=== PATIENT | female | born 1995 | race American Indian/Alaskan Native ===

== ENCOUNTER 2019-06-06 20:04 | Emergency (ER) | payer SELFPAY ==
[2019-06-06 22:05] VITALS: BP 128/76
--- NOTE | 2019-06-06 22:07 | Event Note ---
ED Screening Note Date of service: 06/06/19 Time: 22:03 ED Screening Note: This is a 24 y.o. F. that presents to the ER with low back for 2 months. Reports pain as stabbing pain that is intermittent and radiating down RLE. States she went to the gym today and worsening pain than usual. This initial assessment/diagnostic orders/clinical plan/treatment(s) is/are subject to change based on patients health status, clinical progression and re- assessment by fellow clinical providers in the ED. Further treatment and workup at subsequent clinical providers discretion. Patient/guardian urged not to elope from the ED as their condition may be serious if not clinically assessed and managed. Initial orders include: XR L-spine
--- NOTE | 2019-06-06 22:42 | XRay Report ---
LUMBAR SPINE 3 VIEWS. INDICATION / CLINICAL INFORMATION: low back pain COMPARISON: None available. FINDINGS: BONES / JOINT(S): No acute fracture or subluxation. No significant arthritis. SOFT TISSUES: No significant abnormality. ADDITIONAL FINDINGS: None. Signer Name: Elio Summers MD Signed: 06/06/2019 10:38 PM Workstation Name: [id number]
[2019-06-06] MEDS ORDERED: dexAMETHasone 20 MG/5 ML VIAL IM ONE (23:34)
[2019-06-06] MEDS ORDERED: CYCLOBENZAPRINE 10 MG TAB PO ONE (23:34)
--- NOTE | 2019-06-06 23:40 | Emergency Department Report ---
ED Back Pain/Injury HPI - General Chief Complaint: Back Pain/Injury Stated Complaint: RT LOWER HIP/BACK Time Seen by Provider: 06/06/19 22:03 Source: patient Limitations: No Limitations - History of Present Illness Initial Comments: Patient is a 24-year-old female who presents to the emergency room with complaints of right lower back pain radiating to the right hip that began 2 months ago but has progressively becoming more uncomfortable. Patient denies any fall or injury. 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 She denies any numbness, weakness, bowel or bladder incontinence, nausea, vomiting, fever. She denies any past medical history or allergies to medications. Patient states that she is currently on her menstrual cycle. - Related Data Previous Rx's Medication Instructions Recorded Last Taken Type Cyclobenzaprine [Flexeril] 10 mg PO QHS PRN #10 tablet 06/06/19 Unknown Rx Naproxen [EC-Naproxen] 500 mg PO BID PRN #14 tablet. 06/06/19 Unknown Rx Allergies Allergy/AdvReac Type Severity Reaction Status Date / Time No Known Allergies Allergy Verified 06/06/19 20:10 ED Review of Systems ROS: Stated complaint: RT LOWER HIP/BACK Other details as noted in HPI Comment: All other systems reviewed and negative ED Past Medical Hx - Social History Smoking Status: Never Smoker Substance Use Type: None - Medications Home Medications: Home Medications Medication Instructions Recorded Confirmed Last Taken Type Cyclobenzaprine [Flexeril] 10 mg PO QHS PRN #10 tablet 06/06/19 Unknown Rx Naproxen [EC-Naproxen] 500 mg PO BID PRN #14 tablet. 06/06/19 Unknown Rx ED Physical Exam - General Limitations: No Limitations General appearance: alert, in no apparent distress - Head Head exam: Present: atraumatic, normocephalic - Eye Eye exam: Present: normal appearance - ENT ENT exam: Present: mucous membranes moist - Respiratory Respiratory exam: Present: normal lung sounds bilaterally. Absent: respiratory distress, wheezes, rales, rhonchi, stridor, chest wall tenderness, accessory muscle use, decreased breath sounds, prolonged expiratory - Cardiovascular Cardiovascular Exam: Present: regular rate, normal rhythm, normal heart sounds. Absent: systolic murmur, diastolic murmur, rubs, gallop - Extremities Exam Extremities exam: Present: other (TTP over the right gluteus, no deformity, pt has pain in the back upon straight leg raise of the right leg, neurovascularly intact throughout) - Back Exam Back exam: Present: normal inspection, full ROM, paraspinal tenderness (right lumbar paraspinal muscular TTP, no midline C-spine, T-spine, or L-spine tenderness, no step offs, no deformity). Absent: vertebral tenderness - Neurological Exam Neurological exam: Present: alert, oriented X3 - Psychiatric Psychiatric exam: Present: normal affect, normal mood - Skin Skin exam: Present: warm, dry, intact ED Course Vital Signs 06/06/19 22:03 Temperature 98.7 F Pulse Rate 87 Respiratory 18 Rate Blood Pressure 128/76 O2 Sat by Pulse 99 Oximetry ED Medical Decision Making - Radiology Data Radiology results: report reviewed LUMBAR SPINE 3 VIEWS. INDICATION / CLINICAL INFORMATION: low back pain COMPARISON: None available. FINDINGS: BONES / JOINT(S): No acute fracture or subluxation. No significant arthritis. SOFT TISSUES: No significant abnormality. ADDITIONAL FINDINGS: None. Signer Name: Elio Summers MD Signed: 06/06/2019 10:38 PM Workstation Name: [id number] Transcribed By: ES Dictated By: Elio Summers MD Electronically Authenticated By: Elio Summers MD Signed Date/Time: 06/06/19 223 - Medical Decision Making Patient is a 24-year-old female who presents to the emergency room with c omplaints of right lower back pain radiating to the right hip that began 2 months ago but has progressively becoming more uncomfortable. Patient denies any fall or injury. 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 She denies any numbness, weakness, bowel or bladder incontinence, nausea, vomiting, fever. She denies any past medical history or allergies to medications. Patient states that she is currently on her menstrual cycle. vitals are normal. on exam: TTP over the right gluteus, no deformity, pt has pain in the back upon straight leg raise of the right leg, neurovascularly intact throughout, right lumbar paraspinal muscular TTP, no midline C-spine, T-spine, or L-spine tenderness, no step offs, no deformity. XR L-spine: no acute process. examination consistent with sciatica. Patient given dexamethasone injection and Flexeril while in the emergency department. Patient did not drive to the ER tonight. Patient given prescription for Flexeril and naproxen. Advised patient Please use medication as prescribed as needed. Do not drive or operate heavy machinery while taking muscle relaxer. please use the stretches for sciatica. May use ice packs, heating pad, rest, epsom salt bath. follow up with an orthopedic doctor in the next 3-5 days. return to the emergency room for any new or worsening symptoms. - Differential Diagnosis strain, sciatica, DDD, arthritis, bursitis, IT band syndrome Critical care attestation.: If time is entered above; I have spent that time in minutes in the direct care of this critically ill patient, excluding procedure time. ED Disposition Clinical Impression: Low back pain Qualifiers: Chronicity: acute Back pain laterality: right Sciatica presence: with sciatica Sciatica laterality: sciatica of right side Qualified Code(s): M54.41 - Lumbago with sciatica, right side Disposition: - TO HOME OR SELFCARE Is pt being admited?: No Does the pt Need Aspirin: No Condition: Stable Instructions: Sciatica (ED) Additional Instructions: Please use medication as prescribed as needed. Do not drive or operate heavy machinery while taking muscle relaxer. please use the stretches for sciatica. May use ice packs, heating pad, rest, epsom salt bath. follow up with an ortho pedic doctor in the next 3-5 days. return to the emergency room for any new or worsening symptoms. Prescriptions: Cyclobenzaprine [Flexeril] 10 mg PO QHS PRN #10 tablet PRN Reason: Muscle Spasm Naproxen [EC-Naproxen] 500 mg PO BID PRN #14 tablet.dr STEPHENSON Reason: pain Referrals: [facility] [Provider Group] - 3-5 Days Forms: Work/School Release Form(ED) Time of Disposition: 23:38 Print Language: THAI
== END 2019-06-07 00:10 | disposition home or self-care (01) ==
LOC: EDBD → ED 20:04
DX: M54.41 Lumbago with sciatica, right side (principal)
CPT/HCPCS: 72100; 96372; 99283; J1100

== ENCOUNTER 2020-05-08 10:23 | Emergency (ER) | payer OTHER ==
[2020-05-08 10:54] VITALS: BP 130/65
[2020-05-08] MEDS ORDERED: KETOROLAC 60 MG/2 ML INJ IM ONE (11:05)
[2020-05-08] MEDS ORDERED: dexAMETHasone 4 MG/ML VIAL IM ONE (11:05)
--- NOTE | 2020-05-08 11:57 | Emergency Department Report ---
ED Neck Pain/Injury HPI - General Chief Complaint: Neck Pain/Injury Stated Complaint: NECK PAIN Time Seen by Provider: 05/08/20 11:05 Mode of arrival: Ambulatory Limitations: No Limitations - History of Present Illness Initial Comments: Patient is a 24-year-old female presents emergency room with complaints of left sided neck pain that began this morning when she woke up. She states that she has pain with movement and does not want to turn to the left side. She states that she is not sure if she slept wrong. She denies any fall or injury. She denies any fever, nausea, vomiting, diarrhea, numbness, weakness, bowel or bladder incontinence, any other symptoms. No past medical history. No allergies to medications. States she is currently on her menstrual cycle. - Related Data Previous Rx's Medication Instructions Recorded Last Taken Type Cyclobenzaprine [Flexeril] 10 mg PO QHS PRN #10 tablet 06/06/19 Unknown Rx Naproxen [EC-Naproxen] 500 mg PO BID PRN #14 tablet. 06/06/19 Unknown Rx Menthol/Camphor [[place] 1 applicatio TP BID #1 oint...g. 05/08/20 Unknown Rx Ointment] Methocarbamol [Robaxin] 500 mg PO BID PRN #12 tablet 05/08/20 Unknown Rx Naproxen [EC-Naprosyn] 500 mg PO BID PRN #14 tablet. 05/08/20 Unknown Rx Allergies Allergy/AdvReac Type Severity Reaction Status Date / Time No Known Allergies Allergy Verified 06/06/19 20:10 ED Review of Systems ROS: Stated complaint: NECK PAIN Other details as noted in HPI Comment: All other systems reviewed and negative ED Past Medical Hx - Past Medical History Previous Medical History?: No - Surgical History Past Surgical History?: No - Social History Smoking Status: Never Smoker Substance Use Type: None - Medications Home Medications: Home Medications Medication Instructions Recorded Confirmed Last Taken Type Cyclobenzaprine [Flexeril] 10 mg PO QHS PRN #10 tablet 06/06/19 Unknown Rx Naproxen [EC-Naproxen] 500 mg PO BID PRN #14 tablet. 06/06/19 Unknown Rx Menthol/Camphor [[place] 1 applicatio TP BID #1 oint...g. 05/08/20 Unknown Rx Ointment] Methocarbamol [Robaxin] 500 mg PO BID PRN #12 tablet 05/08/20 Unknown Rx Naproxen [EC-Naprosyn] 500 mg PO BID PRN #14 tablet. 05/08/20 Unknown Rx ED Physical Exam - General Limitations: No Limitations General appearance: alert, in no apparent distress - Head Head exam: Present: atraumatic, normocephalic - Eye Eye exam: Present: normal appearance - ENT ENT exam: Present: mucous membranes moist - Neck Neck exam: Present: normal inspection, tenderness (left sided C-spine ttp, no midline C-spine ttp, no step offs, no deformities, she has decreased ROM turning her neck to the left, normal ROM to the right and with flexion and extension). Absent: meningismus - Respiratory Respiratory exam: Present: normal lung sounds bilaterally. Absent: respiratory distress, wheezes, rales, rhonchi, stridor, chest wall tenderness, accessory muscle use, decreased breath sounds, prolonged expiratory - Cardiovascular Cardiovascular Exam: Present: regular rate, normal rhythm, normal heart sounds. Absent: systolic murmur, diastolic murmur, rubs, gallop - Back Exam Back exam: Present: normal inspection, full ROM. Absent: paraspinal tenderness, vertebral tenderness - Neurological Exam Neurological exam: Present: alert, oriented X3, CN II-XII intact, normal gait, other (5/5 muscle strength in the BUE/BLE, sensation intact throughout, pt is able to raise both arms above the head briskly, 2+ distal pulses, no focal neuro deficit). Absent: motor sensory deficit - Psychiatric Psychiatric exam: Present: normal affect, normal mood - Skin Skin exam: Present: warm, dry, intact ED Course Vital Signs 05/08/20 05/08/20 10:52 12:12 Temperature 98.8 F Pulse Rate 89 89 Respiratory 17 17 Rate Blood Pressure 130/65 Blood Pressure 130/65 [Left] O2 Sat by Pulse 100 100 Oximetry ED Medical Decision Making - Medical Decision Making Patient is a 24-year-old female presents emergency room with complaints of left sided neck pain that began this morning when she woke up. She states that she has pain with movement and does not want to turn to the left side. She states that she is not sure if she slept wrong. She denies any fall or injury. She denies any fever, nausea, vomiting, diarrhea, numbness, weakness, bowel or bladder incontinence, any other symptoms. No past medical history. No allergies to medications. States she is currently on her menstrual cycle. Vitals are normal. On exam:left sided C-spine ttp, no midline C-spine ttp, no step offs, no deformities, she has decreased ROM turning her neck to the left, normal ROM to the right and with flexion and extension, 5/5 muscle strength in the BUE/BLE, sensation intact throughout, pt is able to raise both arms above the head briskly, 2+ distal pulses, no focal neuro deficit. Examination appears most consistent with muscle strain versus torticollis. She has no meningeal signs, she has had no trauma, she has no midline tenderness, no step-offs, no deformities, no neurological deficits. Patient given Toradol and dexamethasone IM and symptoms improved and she was feeling better and ready to go home. Patient given prescription for [place] balm ointment, naproxen, Robaxin. Patient will be referred to primary care physician for reexamination. Discussed strict return precautions with patient advised patient Please use medication as prescribed. Do not drive or operate heavy machinery while taking muscle relaxer (Robaxin). may use ice pack, heating pad, rest, Epson salt bath. Follow-up with a primary care doctor in the next 2 to 3 days for reexamination. Return to emergency room for any new or worsening symptoms. Critical care attestation.: If time is entered above; I have spent that time in minutes in the direct care of this critically ill patient, excluding procedure time. ED Disposition Clinical Impression: Acute strain of neck muscle Qualifiers: Encounter type: initial encounter Qualified Code(s): S16.1XXA - Strain of muscle, fascia and tendon at neck level, initial encounter Disposition: DC-01 TO HOME OR SELFCARE Is pt being admited?: No Does the pt Need Aspirin: No Condition: Stable Instructions: Muscle Strain (ED), Spasmodic Torticollis (ED) Additional Instructions: Please use medication as prescribed. Do not drive or operate heavy machinery while taking muscle relaxer (Robaxin). may use ice pack, heating pad, rest, Epson salt bath. Follow-up with a primary care doctor in the next 2 to 3 days for reexamination. Return to emergency room for any new or worsening symptoms. Prescriptions: Naproxen [EC-Naprosyn] 500 mg PO BID PRN #14 tablet. PRN Reason: pain Methocarbamol [Robaxin] 500 mg PO BID PRN #12 tablet PRN Reason: pain Menthol/Camphor [[place] Ointment] 1 applicatio TP BID #1 oint...g. Referrals: DANIEL MELISSA MD [Staff Physician] - 2-3 Days [facility] [Provider Group] - 2-3 Days [facility] [Outside] - 2-3 Days Forms: Work/School Release Form(ED) Time of Disposition: 11:55 Print Language: POLISH
== END 2020-05-08 12:13 | disposition home or self-care (01) ==
LOC: ED 10:23
DX: S16.1XXA Strain of muscle, fascia and tendon at neck level, initial encounter (principal); Z79.899 Other long term (current) drug therapy; X58.XXXA Exposure to other specified factors, initial encounter; Y93.89 Activity, other specified; Y92.89 Other specified places as the place of occurrence of the external cause; Y99.8 Other external cause status
CPT/HCPCS: 96372; 99282; J1100; J1885

== ENCOUNTER 2020-05-18 04:34 | Emergency (ER) | payer OTHER ==
[2020-05-18 04:51] VITALS: BP 142/69
[2020-05-18] MEDS ORDERED: oxyCODONE /ACETAMINOPHEN 5-325MG TAB PO ONE ×2 (05:18→05:20)
[2020-05-18] MEDS ORDERED: KETOROLAC 30 MG/1 ML INJ IM ONE (05:18)
[2020-05-18] MEDS ORDERED: dexAMETHasone 20 MG/5 ML VIAL IM ONE (05:18)
[2020-05-18] MEDS ORDERED: ONDANSETRON 4 MG ODT TAB PO ONE (05:19)
--- NOTE | 2020-05-18 05:45 | Emergency Department Report ---
ED Neck Pain/Injury [facility] - General Chief Complaint: Neck Pain/Injury Stated Complaint: NECK PAIN Mode of arrival: Ambulatory Limitations: No Limitations - History of Present Illness Initial Comments: Patient is a 24-year-old -[place] female with no past medical history presents to the ED with complaint of acute onset persistent severe right lateral neck pain that radiates to the right shoulder and right arm with tingling sensation for the last 3 days, worse in the last 24 hours. Patient states that she has not been able to sleep because of worsening pain such that she is unable to perform any active range of motion of the right shoulder. Patient states that she had a similar symptoms over 1 week ago and was evaluated in this ED and given prescription medications for pain which helped resolve the pain but she ran out of the medications and that 3 days ago the pain returned and now has worsened in the last 24 hours. Patient denies chest pain, shortness of breath, dizziness, syncope, traumatic injury, heavy lifting, nausea and vomiting, headache, back pain, fall, cough, fever and chills, abdominal pain or change in vision. MD Complaint: neck pain, other (Right shoulder and arm pain) -: Sudden, days(s) (3) Place: home Radiation: right lateral, right shoulder Severity: severe Severity scale (0 -10): 8 Quality: sharp, aching Consistency: constant Improves With: medication OTC/prescribe Worsens With: movement of extremity, movement of neck Context: unknown Associated Symptoms: none, tingling (Right arm tingling sensation). denies: headache, fever, numbness, weakness, vertigo, difficulty walking, swollen glands, difficulty swallowing, nausea, vomiting Treatments Prior to Arrival: Ibuprofen - Related Data Previous Rx's Medication Instructions Recorded Last Taken Type Cyclobenzaprine [Flexeril] 10 mg PO QHS PRN #10 tablet 06/06/19 Unknown Rx Naproxen [EC-Naproxen] 500 mg PO BID PRN #14 tablet. 06/06/19 Unknown Rx Menthol/Camphor [[place] 1 applicatio TP BID #1 oint...g. 05/08/20 Unknown Rx Ointment] Methocarbamol [Robaxin] 500 mg PO BID PRN #12 tablet 05/08/20 Unknown Rx Naproxen [EC-Naprosyn] 500 mg PO Q12H PRN #30 tablet. 05/18/20 Unknown Rx methOCARBAMOL [Robaxin TAB] 750 mg PO Q12H #30 tab 05/18/20 Unknown Rx predniSONE [Deltasone] 40 mg PO QDAY #10 tab 05/18/20 Unknown Rx Allergies Allergy/AdvReac Type Severity Reaction Status Date / Time No Known Allergies Allergy Verified 06/06/19 20:10 ED Review of Systems ROS: Stated complaint: NECK PAIN Other details as noted in HPI Constitutional: denies: chills, fever Eyes: denies: eye pain, eye discharge, vision change ENT: denies: ear pain, throat pain Respiratory: denies: cough, shortness of breath, wheezing Cardiovascular: denies: chest pain, palpitations Endocrine: no symptoms reported Gastrointestinal: denies: abdominal pain, nausea, diarrhea Genitourinary: denies: urgency, dysuria, discharge Musculoskeletal: arthralgia (Right lateral neck pain that radiates to the), myalgia ( right shoulder and right arm). denies: back pain, joint swelling Skin: denies: rash, lesions Neurological: denies: headache, weakness, paresthesias Psychiatric: denies: anxiety, depression Hematological/Lymphatic: denies: easy bleeding, easy bruising ED Past Medical Hx - Past Medical History Previous Medical History?: No - Surgical History Past Surgical History?: Yes Hx Cholecystectomy: Yes Hx Breast Surgery: Yes (Augmentation) - Social History Smoking Status: Never Smoker Substance Use Type: None - Medications Home Medications: Home Medications Medication Instructions Recorded Confirmed Last Taken Type Cyclobenzaprine [Flexeril] 10 mg PO QHS PRN #10 tablet 06/06/19 Unknown Rx Naproxen [EC-Naproxen] 500 mg PO BID PRN #14 tablet. 06/06/19 Unknown Rx Menthol/Camphor [[place] 1 applicatio TP BID #1 oint...g. 05/08/20 Unknown Rx Ointment] Methocarbamol [Robaxin] 500 mg PO BID PRN #12 tablet 05/08/20 Unknown Rx Naproxen [EC-Naprosyn] 500 mg PO Q12H PRN #30 tablet. 05/18/20 Unknown Rx methOCARBAMOL [Robaxin TAB] 750 mg PO Q12H #30 tab 05/18/20 Unknown Rx predniSONE [Deltasone] 40 mg PO QDAY #10 tab 05/18/20 Unknown Rx ED Physical Exam - General Limitations: No Limitations General appearance: alert, in no apparent distress - Head Head exam: Present: atraumatic, normocephalic, normal inspection - Eye Eye exam: Present: normal appearance, PERRL, EOMI Pupils: Present: normal accommodation - ENT ENT exam: Present: normal exam, normal orophraynx, mucous membranes moist, TM's normal bilaterally, normal external ear exam - Neck Neck exam: Present: normal inspection, tenderness (Palpable right lateral sternocleidomastoid tenderness; palpable tenderness of right cervical muscles). Absent: meningismus, full ROM (Limited range of motion of right lateral cervical region due to pain), lymphadenopathy, thyromegaly - Respiratory Respiratory exam: Present: normal lung sounds bilaterally. Absent: respiratory distress, wheezes, rales, stridor, chest wall tenderness, accessory muscle use, prolonged expiratory - Cardiovascular Cardiovascular Exam: Present: regular rate, normal rhythm, normal heart sounds. Absent: systolic murmur, diastolic murmur, rubs, gallop - GI/Abdominal GI/Abdominal exam: Present: soft, normal bowel sounds. Absent: tenderness, guarding, hyperactive bowel sounds, hypoactive bowel sounds - Extremities Exam Extremities exam: Present: normal inspection, full ROM, tenderness (Palpable right shoulder tenderness), normal capillary refill - Back Exam Back exam: Present: normal inspection, full ROM. Absent: tenderness, CVA tenderness (R), CVA tenderness (L), muscle spasm, paraspinal tenderness, vertebral tenderness - Neurological Exam Neurological exam: Present: alert, oriented X3, CN II-XII intact, normal gait, reflexes normal - Psychiatric Psychiatric exam: Present: normal affect, normal mood - Skin Skin exam: Present: warm, dry, intact, normal color. Absent: rash ED Course Vital Signs 05/18/20 04:44 Temperature 98.2 F Pulse Rate 93 H Respiratory 17 Rate Blood Pressure 142/69 O2 Sat by Pulse 99 Oximetry ED Medical Decision Making - Medical Decision Making This is a 24-year-old -[place] female with no past medical history presents to the ED with complaint of acute onset persistent severe right lateral neck pain that radiates to the right shoulder and right arm with tingling sensation for the last 3 days, worse in the last 24 hours. Patient states that she has not been able to sleep because of worsening pain such that she is unable to perform any active range of motion of the right shoulder. Patient states that she had a similar symptoms over 1 week ago and was evaluated in this ED and given prescription medications for pain which helped resolve the pain but she ran out of the medications and that 3 days ago the pain returned and now has worsened in the last 24 hours. In the ED, patient is alert and oriented x3 and is not in distress but appears to be in significant pain, placing cold ice on the right lateral neck. Patient was treated for pain in the ED and was discharged home on more pain medications and muscle relaxants. Patient was advised to follow-up with her primary care physician in 5 to 7 days for reevalu ation and also advised to change her sleeping habits or her bedding to accommodate and minimize the symptoms. Patient was advised return to the ED immediately if symptoms get worse. - Differential Diagnosis Acute torticollis; cervical sprain; sternocleidomastoid strain Critical care attestation.: If time is entered above; I have spent that time in minutes in the direct care of this critically ill patient, excluding procedure time. ED Disposition Clinical Impression: Acute torticollis, Cervical paraspinal muscle spasm Strain of sternocleidomastoid muscle Qualifiers: Encounter type: subsequent encounter Qualified Code(s): S16.1XXD - Strain of muscle, fascia and tendon at neck level, subsequent encounter Disposition: DC-01 TO HOME OR SELFCARE Is pt being admited?: No Does the pt Need Aspirin: No Condition: Stable Instructions: Muscle Strain (ED), Cervical Sprain (ED), Spasmodic Torticollis (ED) Additional Instructions: Take medication with food, drink plenty of fluids and follow-up with your primary care physician in 7 to 10 days for reevaluation. Return to the ED immediately if symptoms get worse. Prescriptions: predniSONE [Deltasone] 40 mg PO QDAY #10 tab Naproxen [EC-Naprosyn] 500 mg PO Q12H PRN #30 tablet.dr STEPHENSON Reason: pain methOCARBAMOL [Robaxin TAB] 750 mg PO Q12H #30 tab Referrals: [facility] [Provider Group] - 7-10 days Forms: Work/School Release Form(ED) Time of Disposition: 05:47 Print Language: NAMIBIAN
== END 2020-05-18 06:15 | disposition home or self-care (01) ==
LOC: ED 04:34
DX: S16.1XXA Strain of muscle, fascia and tendon at neck level, initial encounter (principal); M43.6 Torticollis; M62.838 Other muscle spasm; M54.2 Cervicalgia; Z90.49 Acquired absence of other specified parts of digestive tract; Z79.899 Other long term (current) drug therapy; X58.XXXA Exposure to other specified factors, initial encounter; Y93.89 Activity, other specified; Y92.89 Other specified places as the place of occurrence of the external cause; Y99.8 Other external cause status
CPT/HCPCS: 96372; 99282; J1100; J1885; Q0162